=== PATIENT | male | born 1990 | race Caucasian/White ===

== ENCOUNTER 2016-09-27 21:11 | Emergency (ER) | payer OTHER ==
[~2016-09-27] VITALS: Ht 175.3 cm; Wt 92.7 kg
[2016-09-27 21:23] VITALS: BP 139/89; PULSE 88; RESP 16; TEMP 98.9; O2SAT 99
[2016-09-27] MEDS ORDERED: KETOROLAC TROMETHAMINE 30 MG/ML (IVP) VIAL IV PUSH ONE (21:45)
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
[2016-09-27 21:54] LABS: MEAN CELL VOLUME 87.9 FL (80.0-100.0); MEAN CORPUSCULAR HEMOGLOBIN 29.9 PG (27.0-34.0); MEAN CORPUSCULAR HGB CONC 34.1 % (32.0-36.0); PLATELET COUNT 275 TH/MM3 (150-450); RED BLOOD COUNT 4.78 MIL/MM3 (4.50-5.90); RED CELL DISTRIBUTION WIDTH 12.1 % (11.6-17.2); REVIEW FLAG FINAL; WHITE BLOOD COUNT 9.2 TH/MM3 (4.0-11.0)
[2016-09-27 22:00] LABS: POTASSIUM 3.9 MEQ/L (3.5-5.1)
[2016-09-27 22:03] LABS: BICARBONATE 27.9 MEQ/L (21.0-32.0)
[2016-09-27 22:15] VITALS: BP 138/68; PULSE 82; RESP 18; O2SAT 99
--- NOTE | 2016-09-27 22:23 | RADRPT ---
EXAM DATE/TIME: 09/27/2016 21:51 [facility] COMPARISON: No previous studies available for comparison. INDICATIONS : Right knee pain. MEDICAL HISTORY : None. SURGICAL HISTORY : None. ENCOUNTER: Initial ACUITY: 1 day PAIN SCORE: 4/10 LOCATION: Right knee. FINDINGS: Four view examination of the right knee demonstrates no evidence of fracture or dislocation. Bony mi neralization is normal. The articular surfaces are intact. The suprapatellar soft tissues have a no rmal configuration. CONCLUSION: No acute disease. Walt Francois MD on September 27, 2016 at 22:21 Board Certified Radiologist. This report was verified electronically.
--- NOTE | 2016-09-27 22:23 | RADRPT ---
EXAM DATE/TIME: 09/27/2016 21:46 [facility] COMPARISON: No previous studies available for comparison. INDICATIONS : Left knee pain. MEDICAL HISTORY : None. SURGICAL HISTORY : None. ENCOUNTER: Initial ACUITY: 1 day PAIN SCORE: 4/10 LOCATION: Left knee. FINDINGS: Four view examination of the left knee demonstrates no evidence of fracture or dislocation. Bony min eralization is normal. The articular surfaces are intact. The suprapatellar soft tissues have a nor mal configuration. CONCLUSION: No acute disease. Walt Francois MD on September 27, 2016 at 22:21 Board Certified Radiologist. This report was verified electronically.
[2016-09-27] MEDS ORDERED: SODIUM CHLOR 0.9% 1000 ML INJ 1,000 ML IV ONE (22:45)
[2016-09-27 23:00] VITALS: BP 136/71; PULSE 70; RESP 18; O2SAT 97
[2016-09-27] MEDS ORDERED: NAPR500T PO (23:00)
[2016-09-27] MEDS ORDERED: TRAM50TA PO (23:00)
[2016-09-27 23:44] VITALS: BP 127/59; TEMP 98.5
[2016-09-28 00:05] LABS: CKMB 3.9 NG/ML (0.5-3.6)
== END 2016-09-27 23:46 | disposition home or self-care (01) ==
LOC: PHED 21:11
DX: S77 Crushing injury of hip and thigh (principal); V09.9XXA Pedestrian injured in unspecified transport accident, initial encounter
CPT/HCPCS: 73564; 80048; 82550; 82552; 85027; 96361; 96374; 99284; J1885; J7030